=== PATIENT | female | born 1985 | race Caucasian/White ===

== ENCOUNTER 2017-06-07 16:01 | Emergency (ER) | payer OTHER ==
[~2017-06-07] VITALS: Ht 170.2 cm; Wt 74.8 kg
[2017-06-07 16:12] VITALS: Ht 170.2 cm; Wt 74.8 kg
[2017-06-07 17:48] LABS: BASOPHIL % 0.5 % (0-2); PLATELET COUNT 270 x10^3mcL (130-400); RED CELL DISTRIBUTION WIDTH 13.4 % (11.5-14.5)
[2017-06-07 17:54] LABS: CALCIUM 8.4 mg/dL (8.5-10.1); CARBON DIOXIDE 28.3 mmol/L (21-32); CHLORIDE SERUM 105 mmol/L (98-107); CREATININE SERUM 0.7 mg/dL (0.6-1.0); GFR1 > 60 mL/min; GLUCOSE SERUM 90 mg/dL (74-106); POTASSIUM SERUM 3.8 mmol/L (3.5-5.1); SODIUM SERUM 142 mmol/L (136-145)
[2017-06-07 17:59] LABS: ALBUMIN 3.7 g/dL (3.4-5.0); ALKALINE PHOSPHATASE 64 U/L (46-116); ALT/SGPT 15 U/L (14-59); AST/SGOT 9 U/L (15-37); BILIRUBIN TOTAL 0.3 mg/dL (0.20-1.00); LIPASE 174 IU/L (73-393); TOTAL PROTEIN, SERUM 7.4 g/dL (6.4-8.2)
[2017-06-07 21:08] VITALS: BP 102/64
== END 2017-06-07 21:08 | disposition home or self-care (01) ==
LOC: ED 16:01
PROVIDERS: Emergency Medicine
DX: R10.12 Left upper quadrant pain (principal)
CPT/HCPCS: J1885; J7030; Q9967

== ENCOUNTER 2017-11-29 20:51 | Emergency (ER) | payer OTHER ==
[~2017-11-29] VITALS: Ht 170.2 cm; Wt 77.6 kg
[2017-11-29 21:08] VITALS: Ht 170.2 cm; Wt 77.6 kg
[2017-11-29 21:46] VITALS: BP 122/74
== END 2017-11-29 21:46 | disposition home or self-care (01) ==
LOC: ED 20:51
DX: H10.13 Acute atopic conjunctivitis, bilateral (principal); R51 Headache

== ENCOUNTER 2018-07-11 16:02 | Emergency (ER) | payer OTHER ==
[~2018-07-11] VITALS: Ht 170.2 cm; Wt 82.6 kg
[2018-07-11 16:17] VITALS: Ht 170.2 cm; Wt 82.6 kg
[2018-07-11 17:47] VITALS: BP 126/63
== END 2018-07-11 17:47 | disposition home or self-care (01) ==
LOC: ED 16:02
DX: H00.011 Hordeolum externum right upper eyelid (principal)

== ENCOUNTER 2018-09-03 20:30 | Emergency (ER) | payer OTHER ==
[~2018-09-03] VITALS: Ht 170.2 cm; Wt 81.2 kg
[2018-09-03 21:03] VITALS: Ht 170.2 cm; Wt 81.2 kg
[2018-09-03 21:58] VITALS: BP 124/80
== END 2018-09-03 21:58 | disposition home or self-care (01) ==
LOC: ED 20:30
DX: N39.0 Urinary tract infection, site not specified (principal); Z98.890 Other specified postprocedural states